=== PATIENT | female | born 1960 ===

== ENCOUNTER 2020-04-18 11:00 | Inpatient (IN) | payer OTHER ==
[~2020-04-18] VITALS: Ht 157.5 cm; Wt 83.9 kg
[2020-04-18] MEDS ORDERED: NEURONTIN800 MG PO (11:57)
[2020-04-18] MEDS ORDERED: PROZAC20 MG PO (11:58)
[2020-04-18] MEDS ORDERED: ZOCOR20 MG PO (11:58)
[2020-04-18] MEDS ORDERED: PRILOSEC OTC20 MG PO (11:58)
[2020-04-18] MEDS ORDERED: LISINOPRIL20 MG PO (11:59)
[2020-04-18] MEDS ORDERED: CATAFAN PO (11:59)
[2020-04-18] MEDS ORDERED: KLONOPIN PO (12:00)
[2020-04-26] MEDS ORDERED: CLONAZEPAM2 MG PO (13:54)
[2020-04-26] MEDS ORDERED: ZIPSOR25 MG (13:56)
== END 2020-05-02 11:09 | disposition home or self-care (01) | DRG 330 ==
LOC: SURH 04-21 09:00 → O/R 04-21 11:00 → SURH 04-26 10:30 → SURG 04-26 19:43 → SURH 04-29 17:52 → SURG 04-29 18:37
PROVIDERS: ADMIT Colon & Rectal Surgery; ATTEND Colon & Rectal Surgery
PROC: 0DJD8ZZ Inspection of Lower Intestinal Tract, Via Natural or Artificial Opening Endoscopic (ICD-10-PCS; 2020-04-26)
PROC: 0DTN4ZZ Resection of Sigmoid Colon, Percutaneous Endoscopic Approach (ICD-10-PCS; principal; 2020-04-26 10:30)
PROC: 3E0F7GC Introduction of Other Therapeutic Substance into Respiratory Tract, Via Natural or Artificial Opening (ICD-10-PCS; 2020-04-30)
DX: K57.32 Diverticulitis of large intestine without perforation or abscess without bleeding (principal); J45.21 Mild intermittent asthma with (acute) exacerbation; T81.41XA Infection following a procedure, superficial incisional surgical site, initial encounter; K63.89 Other specified diseases of intestine; I10 Essential (primary) hypertension